=== PATIENT | female | born 1975 | race Two or more races ===

== ENCOUNTER 2025-07-13 07:52 | Outpatient (CLI) | payer MEDICAID ==
[2025-07-13 08:38] LABS: Hematocrit 41.3 % (36.0-46.0); Hemoglobin 14.2 g/dL (12.2-16.2); Mean Corpuscular Hemoglobin 30.5 pg (28.0-32.0); Mean Corpuscular Volume 89.0 fL (80.0-100.0); Nucleated Red Blood Cells % 0.1 %
[2025-07-13 09:15] LABS: Alanine Aminotransferase 15 U/L (7-40); Alkaline Phosphatase 88 U/L (46-116); Anion Gap 8 (5-15); Calcium 9.5 mg/dL (8.7-10.4); Carbon Dioxide 27 mmol/L (20-31); Chloride 104 mmol/L (98-107); Glucose 100 mg/dL (74-106); Potassium 3.9 mmol/L (3.5-5.1); Sodium 139 mmol/L (136-145); Total Protein 7.8 g/dL (5.7-8.2); Triglycerides 75 mg/dL (< 150)
[2025-07-13 09:16] LABS: Albumin 4.4 g/dL (3.2-4.8); BUN/Creatinine Ratio 15.4 (10.0-20.0); Bilirubin, Total 0.6 mg/dL (0.2-1.0); Blood Urea Nitrogen 10 mg/dL (9-23); HDL Cholesterol 48 mg/dL (40-59)
[2025-07-13 09:17] LABS: Ferritin 33.4 ng/mL (10-291)
[2025-07-13 09:21] LABS: Cholesterol 216 mg/dL (< 200)
[2025-07-13 10:12] LABS: Iron 96.0 ug/dL (50-170)
[2025-07-13 10:14] LABS: Total Iron Binding Capacity 350.0 ug/dL (250-425)
[2025-07-13 11:02] LABS: Hepatitis A Total Antibody Positive (Negative); Hepatitis B Surface Antigen Negative (Negative); Hepatitis C Antibody Negative (Negative)
== END 2025-07-13 17:00 | disposition home or self-care (01) ==
LOC: LAB 07:52
PROVIDERS: ATTEND Licensed Practical Nurse
DX: E55.9 Vitamin D deficiency, unspecified (principal); R35.0 Frequency of micturition; Z13.1 Encounter for screening for diabetes mellitus; Z00.01 Encounter for general adult medical examination with abnormal findings; Z13.29 Encounter for screening for other suspected endocrine disorder
CPT/HCPCS: 36415; 80053; 80061; 82043; 82306; 82607; 82728; 82746; 83036; 83540; 83550; 84443; 85025; 86704; 86706; 86708; 86803; 87340